=== PATIENT | male | born 1955 | race Caucasian/White ===

== ENCOUNTER → 2018-10-28 | Day surgery (SDC) | payer BC ==
[2018-10-27 15:28] LABS: BASOPHILS % 0.4 % (0.0-1.0); EOSINOPHILS # (AUTO) 0.1 (0.0-0.4); EOSINOPHILS % 1.6 % (0.0-6.0); HEMATOCRIT 39.3 % (38.2-49.6); LYMPHOCYTES # (AUTO) 2.1 (1.0-3.2); LYMPHOCYTES % 38.4 % (18.0-39.1); MEAN CORPUSCULAR HEMOGLOBIN 31.2 pg (28-32); MEAN CORPUSCULAR HGB CONC 33.1 g/dL (31-35); MEAN CORPUSCULAR VOLUME 94.2 fL (81-99); MONOCYTES # (AUTO) 0.4 (0.2-0.8); MONOCYTES % 7.6 % (4.4-11.3); NEUTROPHILS # (AUTO) 2.9 (2.1-6.9); NEUTROPHILS % 51.8 % (38.7-80.0); PLATELET COUNT 118 x10e3/uL (140-360); RED BLOOD COUNT 4.17 x10e6/uL (4.3-5.7); RED CELL DISTRIBUTION WIDTH 12.2 % (11.7-14.4)
[2018-10-27 15:54] LABS: ALANINE AMINOTRANSFERASE 17 IU/L (0-55); ALBUMIN 3.9 g/dL (3.5-5.0); ALBUMIN/GLOBULIN RATIO 1.2 (0.8-2.0); ALKALINE PHOSPHATASE 60 IU/L (40-150); ANION GAP 11.9 mmol/L (8-16); BLOOD UREA NITROGEN 15 mg/dL (7-26); BUN/CREATININE RATIO 14 (6-25); CALCIUM 9.9 mg/dL (8.4-10.2); CARBON DIOXIDE 28 mmol/L (22-29); CHLORIDE 101 mmol/L (98-107); CHOL/HDL RATIO 2.6 (3.9-4.7); CHOLESTEROL 174 MD/DL (0-199); CREATININE, SERUM 1.06 mg/dL (0.72-1.25); EST GLOMERULAR FILTRATION RATE > 60 ML/MIN (60-); GLUCOSE 106 mg/dL (74-118); HDL CHOLESTEROL 68 MG/DL (40-60); LDL CHOLESTEROL 77 MG/DL (60-130); POTASSIUM 3.9 mmol/L (3.5-5.1); SODIUM 137 mmol/L (136-145); TRIGLYCERIDES 143 MG/DL (0-149)
[2018-10-27 15:55] LABS: INR 0.9; PROTHROMBIN TIME 12.6 seconds (11.9-14.5)
[~2018-10-28] VITALS: Ht 188 cm; Wt 84.8 kg
[2018-10-28] VITALS (10 sets, daily range): BP systolic 111–136; BP diastolic 54–82
[~2018-10-28] MED LIST: ALPRAZOLAM 0.5 MG TAB ONE; BENZONATATE100 MG PO; BYSTOLIC10 MG PO; CRESTOR10 MG PO; DIPHENHYDRAMINE HCL 25 MG CAP ONE; FENTANYL CITRATE/PF 100MCG/2 ML INJ ONE; HEPARIN SOD/SOD CHLORIDE 2,000 ML ONE; INSULIN SC; IOPAMIDOL 370 MG/ML 200 ML INFUS..BTL INJ ONE; JARDIANCE PO; LANTUS100 UNITS/ SQ; LIDOCAINE 1% W/EPINEPHRINE 20 ML VIAL ONE; LIDOCAINE HCL 2% LOCAL 20 ML VIAL ONE; LOSARTAN PO; LOSARTAN-HCTZ1 EACH PO; METFORMIN HCL500 M2 PO; MIDAZOLAM HCL 2 MG/2 ML VIAL ONE; OMEPRAZOLE40 MG PO; SODIUM CHLORIDE 0.9% 1000ML 1,000 ML ONE
--- OUTSIDE RECORDS SUMMARY | 2018-10-28 08:58 | XMS REPORT | Clinical Summary ---
Author Author [facility] [facility] Address Unknown Phone Unavailable Care Team Providers Care Medicaid Analyst Name Role Phone Asked, No Pcp PCP Unavailable Allergies Not on File Medications Not on file Active Problems Not on file Encounters Care Team Description Date Type Specialty Galrand Casarez MD Tear of left rotator cuff, unspecified tear extent (Primary Dx) 06/27/2018 Transcribe Physical Therapy Orders Garland Casarez MD Superior glenoid labrum lesion of left shoulder, initial encounter (Primary Dx) 05/22/2018 Transcribe Physical Therapy Orders Garland Casarez MD Superior glenoid labrum lesion of left shoulder, initial encounter (Primary Dx) 03/27/2018 Transcribe Physical Therapy Orders Garland Casarez MD Anterior to posterior tear of superior glenoid labrum of left shoulder (Primary Dx) 02/11/2018 Transcribe Physical Therapy Orders after 10/27/2017 Social History Date Tobacco Use Types Packs/Day Years Used Never Assessed Sex Assigned at Date Recorded Not on file Industry Job Start Date Occupation Not on file Not on file Not on file Travel End Travel History Travel Start No recent travel history available. Last Filed Vital Signs Not on file Plan of Treatment Health Maintenance Due Date Last Done Comments COLON CANCER SCREENING 2006 SHINGLES VACCINES (#1) 2006 INFLUENZA VACCINE 02/12/2019 Results Not on fileafter 10/27/2017 Insurance Payer Benefit Subscriber ID Type Phone Address Plan / Group BCBS BCBS xxxxxxxxxxxx PPO CHOICE PPO/LUIS FERNANDO LUCIANO PPO Advance Directives Patient has advance care planning documents on file. For more information, michael dent contact: Leopoldo Adan [address] [place] [address]
--- OUTSIDE RECORDS SUMMARY | 2018-10-28 08:59 | XMS REPORT | Clinical Summary ---
Author Author [facility] [employer] [facility] Address Unknown Phone Unavailable Care Team Providers Care Planning And Analysis Manager Name Role Phone Douglas Charly Rebolledo PCP Allergies No Known Allergies Medications End Date Status Medication Sig Dispensed Refills Start Date Active nebivolol (BYSTOLIC) 5 MG Take 5 mg by 0 tabletIndications: mouth daily. Cirrhosis (HCC), Chronic hepatitis C without hepatic coma (HCC), Screening for malignant neoplasm Active rosuvastatin (CRESTOR) 10 Take 10 mg by 0 MG tablet mouth daily. Active esomeprazole (NEXIUM) 40 Take 40 mg by 0 MG capsule mouth daily. Active losartan-hydroCHLOROthiaz Take 1 tablet 3 macarena (HYZAAR) 50-12.5 mg by mouth 8 per tabletIndications: daily. Hyperlipidemia, unspecified hyperlipidemia type, Abnormal liver enzymes, Fatty liver, Other cirrhosis of liver (HCC), Screening for malignant neoplasm, History of hepatitis C Active JARDIANCE 10 mg Take 10 mg by 5 tabletIndications: mouth daily. 8 Hyperlipidemia, unspecified hyperlipidemia type, Abnormal liver enzymes, Fatty liver, Other cirrhosis of liver (HCC), Screening for malignant neoplasm, History of hepatitis C Active PEG Use as 1 packet 0 [id number] directed. 8 C (MOVIPREP) 100-7.5-2.691 gram PwPk packet Active ibuprofen (ADVIL,MOTRIN) Take 600 mg 0 600 MG tablet by mouth every 6 (six) hours as needed for Pain. 02/25/2018 Discontinued cetirizine (ZYRTEC) 10 MG Take 10 mg by 0 chewable mouth daily. tabletIndications: Cirrhosis (HCC), Chronic hepatitis C without hepatic coma (HCC), Screening for malignant neoplasm 02/25/2018 Discontinued metFORMIN (GLUCOPHAGE) Take 500 mg 0 500 MG tablet by mouth 2 (two) times daily with breakfast and dinner. Active Problems Problem Noted Date History of hepatitis C 08/26/2017 Chronic hepatitis C without hepatic coma 10/06/2014 History of alcohol use 10/06/2014 Esophageal varices, risk of 10/06/2014 Iron overload 12/21/2013 Last Assessment & Plan: Iron overload noted on studies from 02/2011 (see HPI). We will re-evaluate today. If iron is still elevated, we will check for HFE mutation associated with hemochromatosis. If the patient has hemochromatosis, he will likely require further management with therapeutic phlebotomy. Immunity status testing 12/21/2013 Last Assessment & Plan: All patients with chronic liver disease, regardless of etiology, should be immunized to prevent hepatitis A and hepatitis B if they are not already immune. We will test for immunity to both viruses. Vaccine recommendations will follow. Screening for malignant neoplasm 12/21/2013 Last Assessment & Plan: AFP 17.8 in 02/2011 is concerning for potential neoplasm. There is a strong association between chronic HCV infection and the development of HCC. Fatty liver, DM, chronic EtOH use, and advanced fibrosis are also RFs for the development of HCC. We will evaluate for lesions consistent with HCC on abdominal MRI with contrast and we will also evaluate serum AFP. Diabetes mellitus 12/21/2013 Last Assessment & Plan: Diagnosed in 2012. The patient is on Humalog and Lantus for management. HgA1C was 11.4 in 11/27/13. We will defer to the patient's PCP for management. Hyperlipidemia 12/21/2013 Last Assessment & Plan: Elevated total cholesterol and LDL in 02/2011. Hyperlipidemia is a risk factor for the development of fatty liver. Statins can be safely used in patients with liver disease including cirrhosis. The patient should follow up with his PCP to evaluate a current lipid profile. We will defer to the patient's PCP for management. Atrial fibrillation 12/21/2013 Abnormal liver enzymes 12/21/2013 Last Assessment & Plan: In 11/27/13, liver enzymes were elevated in hepatocellular pattern with ALT > AST, AST 2x ULN and ALT 3x ULN, normal alkaline phosphatase (AST/ALT 68/107, Alk Phos 73). These values are not consistent with those expected in the setting of alcoholic cirrhosis, in which case AST would be greater than twice the value of ALT. Enzyme elevation is likely due to chronic HCV and fatty liver. We will re-evaluate liver enzymes in today's labs. Fatty liver 12/21/2013 Last Assessment & Plan: Gr 3 St 3 with hepatic steatosis on liver biopsy 07/2007. CT chest w/ contrast noted mildly nodular contour of liver with hepatic steatosis, enlarged L hepatic lobe and caudate lobe, 12/04/13. RFs include IDDM, hyperlipidemia. We will evaluate for status of fatty liver and possible cirrhosis with abdominal MRI. Cirrhosis 12/21/2013 Last Assessment & Plan: Cirrhosis diagnosed by labs and imaging. No history or evidence of decompensation. Liver biopsy in 07/[address] chest w/ contrast noted mildly nodular contour of liver with hepatic steatosis, enlarged L hepatic lobe and caudate lobe, 12/04/13. Hepatic function is preserved by labs (T bili 0.7, Alb 4.3 in 11/27/13, Plt 131 in 01/2013). RFs for the development of cirrhosis are chronic HCV infection, fatty liver, and chronic alcohol use. The patient's calculated APRI is 1.73, which raises suspicion for cirrhosis. APRI >1.0 has a sensitivity of 76% and specificity of 72% for predicting cirrhosis. NAFLD fibrosis score is 2.0. NAFLD fibrosis score >0.675 predicts significant fibrosis (F3-F4). Fib-4 Score is 2.86, which predicts moderate fibrosis, F2. We will evaluate MRI for nodular hepatic contour and signs of portal hypertension. The patient was instructed to schedule an EGD with his field marketing associate for surveillance for gastroesophageal varices. Encounters Care Team Description Date Type Specialty Pauline Estrada RN Fatty liver (Primary Dx); Other cirrhosis of liver (HCC) 10/27/2018 Orders Only Hepatology Damián Tejeda MD Fuller, [place], NP Other cirrhosis of liver (HCC) (Primary Dx); Immunity status testing 10/24/2018 Office Visit Hepatology Jimmie Dixon MD 03/06/2018 Anesthesia Gastroenterology Event Damián Tejeda MD UPPER ENDOSCOPY,BIOPSY 03/06/2018 Surgery Gastroenterology Damián Tejeda MD 03/06/2018 Hospital Gastroenterology Encounter Damián Tejeda MD Hollinger, F. Blaine, MD Other cirrhosis of liver (HCC) (Primary Dx) 03/06/2018 Office Visit Hepatology Resource, [place] Preadmit Phone 02/25/2018 Hospital Pre-Admission Testing Encounter Fide Salmon RN Appointment 02/25/2018 Telephone Hepatology Fide Salmon RN Screen for colon cancer (Primary Dx) 02/25/2018 Orders Only Hepatology Rufina Beal Procedure (EGD/Colonoscopy) 02/17/2018 Telephone Hepatology Rufina Beal Appointment (procedure) 01/29/2018 Telephone Hepatology after 10/27/2017 Family History Medical History Relation Name Comments Cancer Father Heart failure Father Hypertension Father Relation Name Status Comments Father Mother Alive Social History Date Tobacco Use Types Packs/Day Years Used Former Smoker Smokeless Tobacco: Never Used Comments: stop smoking 15 years ago Alcohol Use Drinks/Week oz/Week Comments Yes 2-4 Glasses 1.2 - 2.4 of wine Sex Assigned at Date Recorded Not on file Industry Job Start Date Occupation Not on file Not on file Not on file Travel End Travel History Travel Start No recent travel history available. Last Filed Vital Signs Time Taken Vital Sign Reading 10/24/2018 10:27 AM CDT Blood Pressure 135/83 10/24/2018 10:27 AM CDT Pulse 68 10/24/2018 10:27 AM CDT Temperature 37.1 C (98.7 F) 10/24/2018 10:27 AM CDT Respiratory Rate 14 10/24/2018 10:27 AM CDT Oxygen Saturation 97% - Inhaled Oxygen - Concentration 10/24/2018 10:27 AM CDT Weight 86.8 kg (191 lb 4.8 oz) 10/24/2018 10:27 AM CDT Height 188 cm (6' 2") 10/24/2018 10:27 AM CDT Body Mass Index 24.56 Plan of Treatment Not on file Procedures Comments Procedure Name Priority Date/Time Associated Diagnosis HEPATITIS B SURFACE Routine 10/24/2018 Immunity status testing ANTIBODY 11:56 AM CDT CBC W/PLT COUNT & AUTO Routine 10/24/2018 Other cirrhosis of liver DIFFERENTIAL 11:55 AM CDT (HCC) ALPHA FETOPROTEIN (AFP), Routine 10/24/2018 Other cirrhosis of liver TUMOR MARKER 11:55 AM CDT (HCC) CBC W/PLT COUNT & AUTO Routine 10/24/2018 Other cirrhosis of liver DIFFERENTIAL 11:55 AM CDT (HCC) HEPATIC FUNCTION PANEL Routine 10/24/2018 Other cirrhosis of liver 11:55 AM CDT (HCC) BASIC METABOLIC PANEL (7) Routine 10/24/2018 Other cirrhosis of liver 11:55 AM CDT (HCC) REPORT OF PROCEDURE - 06/03/2018 ENDOSCOPY URL 11:53 AM GAS APPLIANCE ADJUSTER REPORT OF PROCEDURE - 06/03/2018 ENDOSCOPY URL 11:53 AM GAS APPLIANCE ADJUSTER REPORT OF PROCEDURE - 03/06/2018 Other cirrhosis of liver ENDOSCOPY URL 12:18 PM CDT (HCC) REPORT OF PROCEDURE - 03/06/2018 Other cirrhosis of liver ENDOSCOPY URL 12:17 PM CDT (HCC) TISSUE EXAM AP Routine 03/06/2018 11:40 AM CDT COLONOSCOPY 03/06/2018 Cirrhosis of liver 11:00 AM CDT without ascites, unspecified hepatic cirrhosis type (HCC) Screening for malignant neoplasm UPPER ENDOSCOPY,BIOPSY 03/06/2018 Cirrhosis of liver 11:00 AM CDT without ascites, unspecified hepatic cirrhosis type (HCC) Screening for malignant neoplasm CBC W/PLT COUNT & AUTO Routine 03/06/2018 Other cirrhosis of liver DIFFERENTIAL 9:36 AM CDT (HCC) ALPHA FETOPROTEIN (AFP), Routine 03/06/2018 Other cirrhosis of liver TUMOR MARKER 9:36 AM CDT (HCC) PROTHROMBIN TIME/INR Routine 03/06/2018 Other cirrhosis of liver 9:36 AM CDT (HCC) CBC W/PLT COUNT & AUTO Routine 03/06/2018 Other cirrhosis of liver DIFFERENTIAL 9:36 AM CDT (HCC) HEPATIC FUNCTION PANEL Routine 03/06/2018 Other cirrhosis of liver 9:36 AM CDT (HCC) BASIC METABOLIC PANEL (7) Routine 03/06/2018 Other cirrhosis of liver 9:36 AM CDT (HCC) after 10/27/2017 Results * Hepatitis B surface antibody (10/24/2018 11:56 AM CDT) Hep B S Ab <8.0 <8.0 mIU/mL [facility] Specimen Blood Performing Organization Address City/State/Zipcode Phone Number [facility] [address] [place] [address] [facility] * CBC with platelet count + automated diff (10/24/2018 11:55 AM CDT) Only the most recent of 2 results within the time period is included. WBC 4.9 3.5 - 10.5 K/L [facility] RBC 4.49 (L) 4.63 - 6.08 M/L [facility] Hemoglobin 14.2 13.7 - 17.5 GM/DL [facility] Hematocrit 42.3 40.1 - 51.0 % [facility] MCV 94.2 (H) 79.0 - 92.2 fL [facility] MCH 31.6 25.7 - 32.2 pg [facility] MCHC 33.6 32.3 - 36.5 GM/DL [facility] RDW 11.9 11.6 - 14.4 % [facility] Platelets 142 (L) 150 - 450 K/CU MM [facility] MPV 10.1 9.4 - 12.4 fL [facility] nRBC 0 0 - 0 /100 WBC [facility] % Neutros 57 % [facility] % Lymphs 33 % [facility] % Monos 8 % [facility] % Eos 2 % [facility] % Baso 1 % [facility] # Neutros 2.81 1.78 - 5.38 K/L [facility] # Lymphs 1.61 1.32 - 3.57 K/L [facility] # Monos 0.39 0.30 - 0.82 K/L [facility] # Eos 0.08 0.04 - 0.54 K/L [facility] # Baso 0.04 0.01 - 0.08 K/L [facility] Immature 0 0 - 1 % [facility] Granulocytes-[facility] Specimen Blood Performing Organization Address City/[facility] Phone Number [address] * Alpha fetoprotein (AFP), tumor marker (10/24/2018 11:55 AM CDT) Only the most recent of 2 results within the time period is included. Alpha-Fetoprotein 3.4 <10.0 ng/mL [facility] Specimen Blood Performing Organization Address City/[facility] Phone Number [place] [id number] * Hepatic function panel (10/24/2018 11:55 AM CDT) Only the most recent of 2 results within the time period is included. Protein, Total 8.0 6.0 - 8.3 gm/dL [facility] Albumin 4.7 3.5 - 5.0 g/dL [facility] Total Bilirubin 0.6 0.2 - 1.2 mg/dL [facility] Bilirubin, Direct 0.3 0.1 - 0.5 mg/dL [facility] Alkaline Phosphatase 59 40 - 150 U/L [facility] AST 25 5 - 34 U/L [facility] ALT 20 6 - 55 U/L [facility] Specimen Blood Performing Organization Address City/[facility] Phone Number [address] [place] [address] [facility] * Basic Metabolic Panel (10/24/2018 11:55 AM CDT) Only the most recent of 2 results within the time period is included. Sodium 140 136 - 145 meq/L [facility] Potassium 4.5 3.5 - 5.1 meq/L [facility] Chloride 104 98 - 107 meq/L [facility] CO2 27 22 - 29 meq/L [facility] BUN 18 7 - 21 mg/dL [facility] Creatinine 1.18 0.57 - 1.25 mg/dL [facility] Glucose 106 (H) 70 - 105 mg/dL [facility] Calcium 10.4 (H) 8.4 - 10.2 mg/dL [facility] EGFR 63Comment: ESTIMATED GFR IS mL/min/1.73 sq m [facility] NOT ACCURATE CREATININE [facility] CLEARANCE IN PREDICTING GLOMERULAR FILTRATION RATE. ESTIMATED GFR IS NOT APPLICABLE FOR DIALYSIS PATIENTS. Specimen Blood Performing Organization Address City/State/Zipcode Phone Number [place] [phone] [place] [address] [facility] * REPORT OF PROCEDURE - ENDOSCOPY URL (06/03/2018 11:53 AM GAS APPLIANCE ADJUSTER) Narrative Performed At * REPORT OF PROCEDURE - ENDOSCOPY URL (06/03/2018 11:53 AM GAS APPLIANCE ADJUSTER) Narrative Performed At * REPORT OF PROCEDURE - ENDOSCOPY URL (03/06/2018 12:18 PM CDT) Narrative Performed At * REPORT OF PROCEDURE - ENDOSCOPY URL (03/06/2018 12:17 PM CDT) Narrative Performed At * Tissue Exam (03/06/2018 11:40 AM CDT) Case Report Surgical Pathology [facility] Case: [id number] Authorizing Provider:Damián Tejeda MD Collected: 03/06/2018 1140 Ordering Location: [facility] Endoscopy Received: 03/06/2018 1411 Services Pathologist: Linda Escalante MD Specimens: A) - Polyp, Duodenum, taken via forcep B) - Antrum, bx via forcep DIAGNOSIS A. DUODENUM, ENDOSCOPIC [facility] POLYPECTOMY: [facility] - CONSISTENT WITH PEPTIC DUODENITIS - NEGATIVE FOR DYSPLASIA OR MALIGNANCY B. STOMACH, ANTRUM, ENDOSCOPIC BIOPSY: - ANTRAL TYPE GASTRIC MUCOSA WITH REACTIVE GASTROPATHY - NO HELICOBACTER PYLORI-LIKE ORGANISMS SEEN ON [facility]TH[facility]-STARRY STAIN - NO INTESTINAL METAPLASIA,DYSPLASIA OR MALIGNANCY NOTED Signing Pathologist Direct Phone Line: [phone] CPT Code(s) 01805 X 2; [id number] [facility] CLINICAL HISTORY Cirrhosis of liver without [facility] ascites, screening for [facility] malignant neoplasm SPECIMEN SOURCE A. Duodenum polyp; B. Antrum [facility] biopsy [facility] GROSS DESCRIPTION Specimen A: Received in [facility] formalin labeled "polyp, [facility] duodenum" are two fragments each measuring 0.3 cm in greatest dimension. Entirely submitted A1. Specimen B: Received in formalin labeled "antrum" are two fragments each measuring 0.2 cm in greatest dimension. Entirely submitted B1. DB/pl MICROSCOPIC DESCRIPTION PERFORMED [facility] SPECIAL STUDIES The following special studies [facility] were performed on this case [facility] and the interpretation is incorporated in the diagnostic report above: [facility] Specimen Tissue - Polyp, Duodenum Performing Organization Address City/State/Zipcode Phone Number [facility] [address] [place] [address] [facility] [place] * Pro-time/INR (03/06/2018 9:36 AM CDT) Protime 13.3 11.7 - 14.7 seconds [facility] INR 1.0 <=5.9 [facility] Specimen Blood Narrative Performed At RECOMMENDED COUMADIN/WARFARIN INR THERAPY RANGES [facility] STANDARD DOSE: 2.0 - 3.0 Includes: PROPHYLAXIS for venous thrombosis, [facility] systemic embolization; TREATMENT for venous thrombosis and/or pulmonary embolus. HIGH RISK: Target INR is 2.5-3.5 for patients with mechanical heart valves. Performing Organization Address City/State/Zipcode Phone Number [facility] [address] [place] [address] [facility] after 10/27/2017 Insurance Payer Benefit Subscriber ID Type Phone Address Plan / Group BLUE CROSS/BLUE SHIELD BCBS PPO xxxxxxxxxxxx PPO [phone] [address] [place] [address] CHOICE
--- OUTSIDE RECORDS SUMMARY | 2018-10-28 08:59 | XMS REPORT ---
Author Author [facility] Address Unknown Phone Unavailable Care Team Providers Care Canvas Worker Apprentice Name Role Phone Deanne TEJEDA Unavailable Unavailable YASMINE LINDSAY Unavailable Unavailable Problems This patient has no known problems. Allergies, Adverse Reactions, Alerts This patient has no known allergies or adverse reactions. Medications This patient has no known medications. Results Test Description Test Time Test Comments Text Results Atomic Results Result Comments HEPATITIS B SURFACE ANTIBODY 2018-10-24 14:32:00 HEPATITIS B SURFACE ANTIBODY (BEAKER) (test lsnn=343) < mIU/mL <8.0 ALPHA FETOPROTEIN (AFP), TUMOR [id number] 14:23:00* Test Item Value Reference Range Comments ALPHA-FETOPROTEIN (BEAKER) (test uooi=8057) 3.4 ng/mL <10.0 HEPATIC FUNCTION [id number] 14:06:00* Test Item Value Reference Range Comments TOTAL PROTEIN (BEAKER) (test tfpp=643) 8.0 gm/dL 6.0-8.3 ALBUMIN (BEAKER) (test ubdc=6005) 4.7 g/dL 3.5-5.0 BILIRUBIN TOTAL (BEAKER) (test gbjt=678) 0.6 mg/dL 0.2-1.2 BILIRUBIN DIRECT (BEAKER) (test hhhb=568) 0.3 mg/dL 0.1-0.5 ALKALINE PHOSPHATASE (BEAKER) (test txih=741) 59 U/L 40-150 AST (SGOT) (BEAKER) (test nuub=436) 25 U/L 5-34 ALT (SGPT) (BEAKER) (test wjbe=929) 20 U/L 6-55 BASIC METABOLIC [id number] 14:06:00* Test Item Value Reference Range Comments SODIUM (BEAKER) (test ueds=029) 140 meq/L 136-145 POTASSIUM (BEAKER) (test qquu=336) 4.5 meq/L 3.5-5.1 CHLORIDE (BEAKER) (test dpyk=318) 104 meq/L 98-107 CO2 (BEAKER) (test sbzp=319) 27 meq/L 22-29 BLOOD UREA NITROGEN (BEAKER) (test zrml=496) 18 mg/dL 7-21 CREATININE (BEAKER) (test jnzp=421) 1.18 mg/dL 0.57-1.25 GLUCOSE RANDOM (BEAKER) (test qdzd=158) 106 mg/dL 70-105 CALCIUM (BEAKER) (test felh=545) 10.4 mg/dL 8.4-10.2 EGFR (BEAKER) (test lakh=6381) 63 mL/min/1.73 sq m ESTIMATED GFR IS NOT ACCURATE CREATININE CLEARANCE IN PREDICTING GLOMERULAR FILTRATION RATE. ESTIMATED GFR IS NOT APPLICABLE FOR DIALYSIS PATIENTS. CBC W/PLT COUNT & AUTO [id number] 13:45:00* Test Item Value Reference Range Comments WHITE BLOOD CELL COUNT (BEAKER) (test vdjb=459) 4.9 K/ L 3.5-10.5 RED BLOOD CELL COUNT (BEAKER) (test vkus=286) 4.49 M/ L 4.63-6.08 HEMOGLOBIN (BEAKER) (test tppb=177) 14.2 GM/DL 13.7-17.5 HEMATOCRIT (BEAKER) (test pyns=687) 42.3 % 40.1-51.0 MEAN CORPUSCULAR VOLUME (BEAKER) (test stgw=855) 94.2 fL 79.0-92.2 MEAN CORPUSCULAR HEMOGLOBIN (BEAKER) (test fzba=678) 31.6 pg 25.7-32.2 MEAN CORPUSCULAR HEMOGLOBIN CONC (BEAKER) (test memv=180) 33.6 GM/DL 32.3-36.5 RED CELL DISTRIBUTION WIDTH (BEAKER) (test stmg=525) 11.9 % 11.6-14.4 PLATELET COUNT (BEAKER) (test bzhs=506) 142 K/CU MM 150-450 MEAN PLATELET VOLUME (BEAKER) (test sraf=802) 10.1 fL 9.4-12.4 NUCLEATED RED BLOOD CELLS (BEAKER) (test skki=947) 0 /100 WBC 0-0 NEUTROPHILS RELATIVE PERCENT (BEAKER) (test bqkp=497) 57 % LYMPHOCYTES RELATIVE PERCENT (BEAKER) (test hojr=546) 33 % MONOCYTES RELATIVE PERCENT (BEAKER) (test cmsb=057) 8 % EOSINOPHILS RELATIVE PERCENT (BEAKER) (test rcgt=342) 2 % BASOPHILS RELATIVE PERCENT (BEAKER) (test tqhw=416) 1 % NEUTROPHILS ABSOLUTE COUNT (BEAKER) (test diwl=717) 2.81 K/ L 1.78-5.38 LYMPHOCYTES ABSOLUTE COUNT (BEAKER) (test ujfp=562) 1.61 K/ L 1.32-3.57 MONOCYTES ABSOLUTE COUNT (BEAKER) (test xpzv=855) 0.39 K/ L 0.30-0.82 EOSINOPHILS ABSOLUTE COUNT (BEAKER) (test huox=128) 0.08 K/ L 0.04-0.54 BASOPHILS ABSOLUTE COUNT (BEAKER) (test ljnp=978) 0.04 K/ L 0.01-0.08 IMMATURE GRANULOCYTES-RELATIVE PERCENT (BEAKER) (test vrsq=1875) 0 % 0-1 TISSUE [id number] 13:51:00Surgical Pathology Report Case: [id number] Authorizing Provider: Damián Tejeda MD Collected: 03/06/2018 1140 Ordering Location: [facility] Endoscopy Received: 03/06/2018 1411 Services Pathologist: Linda Escalante MD Specimens: A) - Polyp, Duodenum, taken via forcep B) - Antrum, bx via forcep A. DUODENUM, ENDOSCOPIC POLYPECTOMY: - CONSISTENT WITH PEPTIC DUODENITIS - NEGATIVE FOR DYSPLASIA OR MALIGNANCYB. STOMACH, ANTRUM, ENDOSCOPIC BIOPSY: - ANTRAL TYPE GASTRIC MUCOSA WITH REACTIVE GASTROPATHY - NO HELICOBACTER PYLORI-LIKE ORGANISMS SEEN ON WARTHIN-STARRY STAIN - NO INTESTINAL METAPLASIA,DYSPLASIA OR MALIGNANCY NOTED Signing Pathologist Direct Phone Line: [phone] signed by Linda Escalante MD on 03/07/2018 at 1:51 [id number] X 2; [id number] of liver without ascites, screening for malignant neoplasmA. Duodenum polyp; B. Antrum biopsySpecimen A: Received in formalin labeled "polyp, duodenum" are two fragments each measuring 0.3 cm in greatest dimension. Entirely submitted A1. Specimen B: Received in formalin labeled "antrum" are two fragments each measuring 0.2 cm in greatest dimension. Entirely submitted B1. DB/plPERFORMEDThe following special studies were performed on this case and the interpretation is incorporated in the diagnostic report above:WARTHIN-STARRYALPHA FETOPROTEIN (AFP), TUMOR MARKER 2018-03-06 11:53:00* Test Item Value Reference Range Comments ALPHA-FETOPROTEIN (BEAKER) (test epze=4706) 4.9 ng/mL <10.0 HEPATIC FUNCTION [id number] 11:37:00* Test Item Value Reference Range Comments TOTAL PROTEIN (BEAKER) (test cxbm=267) 8.2 gm/dL 6.0-8.3 ALBUMIN (BEAKER) (test gzxb=7844) 5.0 g/dL 3.5-5.0 BILIRUBIN TOTAL (BEAKER) (test aozl=812) 0.8 mg/dL 0.2-1.2 BILIRUBIN DIRECT (BEAKER) (test lbmr=406) 0.3 mg/dL 0.1-0.5 ALKALINE PHOSPHATASE (BEAKER) (test zvmy=574) 53 U/L 40-150 AST (SGOT) (BEAKER) (test mngd=271) 43 U/L 5-34 ALT (SGPT) (BEAKER) (test lprm=399) 52 U/L 6-55 BASIC METABOLIC [id number] 11:37:00* Test Item Value Reference Range Comments SODIUM (BEAKER) (test jpuk=674) 139 meq/L 136-145 POTASSIUM (BEAKER) (test kuvo=124) 3.8 meq/L 3.5-5.1 CHLORIDE (BEAKER) (test cjkb=163) 102 meq/L 98-107 CO2 (BEAKER) (test hgzg=386) 28 meq/L 22-29 BLOOD UREA NITROGEN (BEAKER) (test atns=512) 16 mg/dL 7-21 CREATININE (BEAKER) (test skui=851) 1.16 mg/dL 0.57-1.25 GLUCOSE RANDOM (BEAKER) (test ogkf=209) 126 mg/dL 70-105 CALCIUM (BEAKER) (test utka=782) 10.3 mg/dL 8.4-10.2 EGFR (BEAKER) (test lxuv=8138) 64 mL/min/1.73 sq m ESTIMATED GFR IS NOT ACCURATE CREATININE CLEARANCE IN PREDICTING GLOMERULAR FILTRATION RATE. ESTIMATED GFR IS NOT APPLICABLE FOR DIALYSIS PATIENTS. PROTHROMBIN TIME/[id number] 11:19:00* Test Item Value Reference Range Comments PROTIME (BEAKER) (test xucd=824) 13.3 seconds 11.7-14.7 INR (BEAKER) (test isha=573) 1.0 <=5.9 RECOMMENDED COUMADIN/WARFARIN INR THERAPY RANGESSTANDARD DOSE: 2.0 - 3.0 Inclu nicko: PROPHYLAXIS for venous thrombosis, systemic embolization; TREATMENT for taryn ous thrombosis and/or pulmonary embolus.HIGH RISK: Target INR is 2.5-3.5 for pat ients with mechanical heart valves.CBC W/PLT COUNT & AUTO [id number] 11:12:00* Test Item Value Reference Range Comments WHITE BLOOD CELL COUNT (BEAKER) (test oxdx=896) 6.1 K/ L 3.5-10.5 RED BLOOD CELL COUNT (BEAKER) (test dfae=390) 4.69 M/ L 4.63-6.08 HEMOGLOBIN (BEAKER) (test scvl=836) 15.0 GM/DL 13.7-17.5 HEMATOCRIT (BEAKER) (test odpj=781) 43.7 % 40.1-51.0 MEAN CORPUSCULAR VOLUME (BEAKER) (test qgcu=987) 93.2 fL 79.0-92.2 MEAN CORPUSCULAR HEMOGLOBIN (BEAKER) (test ucry=366) 32.0 pg 25.7-32.2 MEAN CORPUSCULAR HEMOGLOBIN CONC (BEAKER) (test itxb=728) 34.3 GM/DL 32.3-36.5 RED CELL DISTRIBUTION WIDTH (BEAKER) (test ttrc=184) 11.8 % 11.6-14.4 PLATELET COUNT (BEAKER) (test xqsg=212) 166 K/CU MM 150-450 MEAN PLATELET VOLUME (BEAKER) (test otox=373) 10.1 fL 9.4-12.4 NUCLEATED RED BLOOD CELLS (BEAKER) (test hapi=120) 0 /100 WBC 0-0 NEUTROPHILS RELATIVE PERCENT (BEAKER) (test vkvs=904) 61 % LYMPHOCYTES RELATIVE PERCENT (BEAKER) (test szfq=447) 29 % MONOCYTES RELATIVE PERCENT (BEAKER) (test eqht=481) 7 % EOSINOPHILS RELATIVE PERCENT (BEAKER) (test bydn=622) 1 % BASOPHILS RELATIVE PERCENT (BEAKER) (test wszb=469) 0 % NEUTROPHILS ABSOLUTE COUNT (BEAKER) (test zxtr=576) 3.73 K/ L 1.78-5.38 LYMPHOCYTES ABSOLUTE COUNT (BEAKER) (test iadg=689) 1.79 K/ L 1.32-3.57 MONOCYTES ABSOLUTE COUNT (BEAKER) (test yxtp=873) 0.44 K/ L 0.30-0.82 EOSINOPHILS ABSOLUTE COUNT (BEAKER) (test ehpt=167) 0.07 K/ L 0.04-0.54 BASOPHILS ABSOLUTE COUNT (BEAKER) (test ubhy=619) 0.02 K/ L 0.01-0.08 IMMATURE GRANULOCYTES-RELATIVE PERCENT (BEAKER) (test znyq=4832) 1 % 0-1 MR, ABDOMEN, [id number] 11:16:00FINAL REPORT TECHNIQUE: MRI of the abdomen WITHOUT and WITH intravenous contrast. INDICATION: 62-year-old man with hepatitis C and cirrhosis. COMPARISON: Abdomen MRI 12/24/2013. FINDINGS: LOWER THORAX: Unremarkable. LIVER: Cirrhotic morphology of the liver. No suspicious hepatic lesions. BILIARY: Prior cholecystectomy. No biliary ductal dilatation or filling defect.SPLEEN: Borderline enlarged, measuring 13.2 cm in the craniocaudal dimension.PANCREAS: No focal masses or ductal dilatation. ADRENALS: No adrenal nodules.KIDNEYS/URETERS: No hydronephrosis or solid mass lesions. PERITONEUM/RETROPERITONEUM: No free f luid.LYMPH NODES: No lymphadenopathy.VESSELS: Portal system and hepatic veins ar e patent. The portal vein is prominent, measuring 1.4 cm in diameter. GI TRACT: No distention or wall thickening. BONES AND SOFT TISSUES: Degenerative changes o f the visualized spine. IMPRESSION:Cirrhosis with evidence of portal hypertensi on. No suspicious liver lesions. Signed: Charmaine Jackort Verified Date/ Time: 10/11/2017 11:16:04 Reading Location: [facility] B1 C013Y CT Body Reading Room -[id number] 08:45:00* Test Item Value Reference Range Comments POC-CREATININE (BEAKER) (test icch=0151) 1.1 mg/dL 0.6-1.3 TESTED AT [facility] [address] [place] [address] POC-EGFR (BEAKER) (test wkxe=8293) 68 mL/min/1.73M2 ALPHA FETOPROTEIN (AFP), TUMOR [id number] 14:20:00* Test Item Value Reference Range Comments ALPHA-FETOPROTEIN (BEAKER) (test jlpe=3947) 4.1 ng/mL <10.0 HEPATIC FUNCTION [id number] 13:56:00* Test Item Value Reference Range Comments TOTAL PROTEIN (BEAKER) (test ubta=492) 8.7 gm/dL 6.0-8.3 ALBUMIN (BEAKER) (test payq=1137) 4.8 g/dL 3.5-5.0 BILIRUBIN TOTAL (BEAKER) (test kgsu=841) 0.6 mg/dL 0.2-1.2 BILIRUBIN DIRECT (BEAKER) (test rdqy=412) 0.2 mg/dL 0.1-0.5 ALKALINE PHOSPHATASE (BEAKER) (test xlag=238) 60 U/L 40-150 AST (SGOT) (BEAKER) (test culu=199) 28 U/L 5-34 ALT (SGPT) (BEAKER) (test nkma=263) 30 U/L 6-55 BASIC METABOLIC [id number] 13:56:00* Test Item Value Reference Range Comments SODIUM (BEAKER) (test lvqb=258) 136 meq/L 136-145 POTASSIUM (BEAKER) (test mmsj=870) 4.5 meq/L 3.5-5.1 CHLORIDE (BEAKER) (test uwlf=640) 100 meq/L 98-107 CO2 (BEAKER) (test rare=661) 24 meq/L 22-29 BLOOD UREA NITROGEN (BEAKER) (test alyp=628) 24 mg/dL 7-21 CREATININE (BEAKER) (test qqlt=177) 1.28 mg/dL 0.57-1.25 GLUCOSE RANDOM (BEAKER) (test zhyz=979) 140 mg/dL 70-105 CALCIUM (BEAKER) (test ifxb=497) 10.1 mg/dL 8.4-10.2 EGFR (BEAKER) (test lbio=4697) 57 mL/min/1.73 sq m ESTIMATED GFR IS NOT ACCURATE CREATININE CLEARANCE IN PREDICTING GLOMERULAR FILTRATION RATE. ESTIMATED GFR IS NOT APPLICABLE FOR DIALYSIS PATIENTS. PROTHROMBIN TIME/[id number] 13:22:00* Test Item Value Reference Range Comments PROTIME (BEAKER) (test rfhn=954) 13.8 seconds 11.7-14.7 INR (BEAKER) (test sohe=727) 1.1 <=5.9 RECOMMENDED COUMADIN/WARFARIN INR THERAPY RANGESSTANDARD DOSE: 2.0 - 3.0 Inclu nicko: PROPHYLAXIS for venous thrombosis, systemic embolization; TREATMENT for taryn ous thrombosis and/or pulmonary embolus.HIGH RISK: Target INR is 2.5-3.5 for pat ients with mechanical heart valves.CBC W/PLT COUNT & AUTO [id number] 13:04:00* Test Item Value Reference Range Comments WHITE BLOOD CELL COUNT (BEAKER) (test qqqp=350) 7.4 K/ L 3.5-10.5 RED BLOOD CELL COUNT (BEAKER) (test hfga=878) 4.56 M/ L 4.63-6.08 HEMOGLOBIN (BEAKER) (test dmbu=612) 14.5 GM/DL 13.7-17.5 HEMATOCRIT (BEAKER) (test gfxc=949) 41.2 % 40.1-51.0 MEAN CORPUSCULAR VOLUME (BEAKER) (test hgwl=080) 90.4 fL 79.0-92.2 MEAN CORPUSCULAR HEMOGLOBIN (BEAKER) (test udme=364) 31.8 pg 25.7-32.2 MEAN CORPUSCULAR HEMOGLOBIN CONC (BEAKER) (test umrw=472) 35.2 GM/DL 32.3-36.5 RED CELL DISTRIBUTION WIDTH (BEAKER) (test csmp=874) 11.4 % 11.6-14.4 PLATELET COUNT (BEAKER) (test aiwh=248) 206 K/CU MM 150-450 MEAN PLATELET VOLUME (BEAKER) (test xrgx=535) 9.3 fL 9.4-12.4 NUCLEATED RED BLOOD CELLS (BEAKER) (test tjcj=992) 0 /100 WBC 0-0 NEUTROPHILS RELATIVE PERCENT (BEAKER) (test fyqc=411) 62 % LYMPHOCYTES RELATIVE PERCENT (BEAKER) (test pfjh=975) 29 % MONOCYTES RELATIVE PERCENT (BEAKER) (test vjyx=046) 7 % EOSINOPHILS RELATIVE PERCENT (BEAKER) (test kflt=797) 1 % BASOPHILS RELATIVE PERCENT (BEAKER) (test gwaf=437) 0 % NEUTROPHILS ABSOLUTE COUNT (BEAKER) (test yqxl=793) 4.54 K/ L 1.78-5.38 LYMPHOCYTES ABSOLUTE COUNT (BEAKER) (test vtmz=369) 2.16 K/ L 1.32-3.57 MONOCYTES ABSOLUTE COUNT (BEAKER) (test guxk=976) 0.49 K/ L 0.30-0.82 EOSINOPHILS ABSOLUTE COUNT (BEAKER) (test lygs=485) 0.10 K/ L 0.04-0.54 BASOPHILS ABSOLUTE COUNT (BEAKER) (test kcej=221) 0.03 K/ L 0.01-0.08 IMMATURE GRANULOCYTES-RELATIVE PERCENT (BEAKER) (test tiva=9222) 1 % 0-1 [id number] 16:46:00* Test Item Value Reference Range Comments FERRITIN (BEAKER) (test idyl=832) 180 ng/mL 5-275 Effective 06/01/2014: Reference Range ChangeNew: Male 5-275 Previous: Male 22-322 Female 5-275 Female 10-291 ALPHA FETOPROTEIN (AFP), TUMOR [id number] 16:46:00* Test Item Value Reference Range Comments ALPHA-FETOPROTEIN (BEAKER) (test yxmz=0796) 4.0 ng/mL <10.0 Effective 06/01/2014: Reference Range ChangeNew: <10.0 Previous: 0.0-8.0 HEPATIC FUNCTION [id number] 16:29:00* Test Item Value Reference Range Comments TOTAL PROTEIN (BEAKER) (test ldhu=378) 7.4 gm/dL 6.0-8.3 ALBUMIN (BEAKER) (test bxpw=2325) 4.4 g/dL 3.5-5.0 BILIRUBIN TOTAL (BEAKER) (test ksrc=684) 0.6 mg/dL 0.2-1.2 BILIRUBIN DIRECT (BEAKER) (test brue=385) 0.3 mg/dL 0.1-0.5 ALKALINE PHOSPHATASE (BEAKER) (test kkus=456) 52 U/L 40-150 AST (SGOT) (BEAKER) (test vkyv=499) 23 U/L 5-34 ALT (SGPT) (BEAKER) (test zfmq=721) 22 U/L 6-55 BASIC METABOLIC [id number] 16:29:00* Test Item Value Reference Range Comments SODIUM (BEAKER) (test eamg=513) 139 meq/L 136-145 POTASSIUM (BEAKER) (test agzb=860) 4.3 meq/L 3.5-5.1 CHLORIDE (BEAKER) (test usce=931) 106 meq/L 98-107 CO2 (BEAKER) (test sfck=394) 27 meq/L 22-29 BLOOD UREA NITROGEN (BEAKER) (test kzya=776) 19 mg/dL 7-21 CREATININE (BEAKER) (test bjcl=308) 1.20 mg/dL 0.57-1.25 GLUCOSE RANDOM (BEAKER) (test fifd=319) 170 mg/dL 70-105 CALCIUM (BEAKER) (test tshi=282) 9.5 mg/dL 8.4-10.2 EGFR (BEAKER) (test mldi=4091) 62 mL/min/1.73 sq m ESTIMATED GFR IS NOT ACCURATE CREATININE CLEARANCE IN PREDICTING GLOMERULAR FILTRATION RATE. ESTIMATED GFR IS NOT APPLICABLE FOR DIALYSIS PATIENTS. IRON, TIBC, % SAT. (WITHOUT FERRITIN)2017-01-03 16:24:00* Test Item Value Reference Range Comments IRON (BEAKER) (test tgpy=598) 99 ug/dL 40-160 TOTAL IRON BINDING CAPACITY (BEAKER) (test lrpm=250) 361 ug/dL 250-450 IRON % SATURATION (2) (BEAKER) (test eooa=1626) 27 % 20-55 CBC W/PLT COUNT & AUTO [id number] 16:04:00* Test Item Value Reference Range Comments WHITE BLOOD CELL COUNT (BEAKER) (test cftc=013) 6.4 K/ L 4.0-10.0 RED BLOOD CELL COUNT (BEAKER) (test hzcv=268) 4.40 M/ L 4.20-5.80 HEMOGLOBIN (BEAKER) (test xzts=360) 13.9 GM/DL 13.0-16.8 HEMATOCRIT (BEAKER) (test xkvb=176) 40.5 % 40.0-50.0 MEAN CORPUSCULAR VOLUME (BEAKER) (test isau=945) 92.0 fL 82.0-98.0 MEAN CORPUSCULAR HEMOGLOBIN (BEAKER) (test giaj=097) 31.6 pg 27.0-33.0 MEAN CORPUSCULAR HEMOGLOBIN CONC (BEAKER) (test gzvj=064) 34.4 GM/DL 32.0-36.0 RED CELL DISTRIBUTION WIDTH (BEAKER) (test roki=712) 11.3 % 10.3-14.2 PLATELET COUNT (BEAKER) (test tnyb=818) 139 K/CU MM 150-430 MEAN PLATELET VOLUME (BEAKER) (test pzjk=896) 6.9 fL 6.5-10.5 NUCLEATED RED BLOOD CELLS (BEAKER) (test vdeb=117) 0 /100 WBC 0-0 NEUTROPHILS RELATIVE PERCENT (BEAKER) (test tnoh=730) 57 % LYMPHOCYTES RELATIVE PERCENT (BEAKER) (test ndsx=271) 35 % MONOCYTES RELATIVE PERCENT (BEAKER) (test qils=549) 6 % EOSINOPHILS RELATIVE PERCENT (BEAKER) (test fjok=576) 1 % BASOPHILS RELATIVE PERCENT (BEAKER) (test vnzw=879) 1 % NEUTROPHILS ABSOLUTE COUNT (BEAKER) (test rqgo=937) 3.63 K/ L 1.80-8.00 LYMPHOCYTES ABSOLUTE COUNT (BEAKER) (test lsjq=037) 2.26 K/ L 1.48-4.50 MONOCYTES ABSOLUTE COUNT (BEAKER) (test hlyz=981) 0.36 K/ L 0.00-1.30 EOSINOPHILS ABSOLUTE COUNT (BEAKER) (test dnnm=934) 0.09 K/ L 0.00-0.50 BASOPHILS ABSOLUTE COUNT (BEAKER) (test bnih=522) 0.05 K/ L 0.00-0.20 0.00PROTHROMBIN TIME/[id number] 15:55:00* Test Item Value Reference Range Comments PROTIME (BEAKER) (test ywux=105) 14.0 seconds 11.7-14.7 INR (BEAKER) (test sjti=092) 1.1 <=5.9 RECOMMENDED COUMADIN/WARFARIN INR THERAPY RANGESSTANDARD DOSE: 2.0 - 3.0 Inclu nicko: PROPHYLAXIS for venous thrombosis, systemic embolization; TREATMENT for taryn ous thrombosis and/or pulmonary embolus.HIGH RISK: Target INR is 2.5-3.5 for pat ients with mechanical heart valves.
--- NOTE | 2018-10-28 10:48 | NUR ---
1048 Received pt to rm #9 Received report from Gwendolyn GLASGOW Identiferx2 [facility] medical Rx Dr Alford. Rt TR band approach 12cc balloon. Titration to start 1130am. Back to baseline orientation. Resp shallow and regular. 100%sat on room air. Abdomen soft and non tender denies necessity to defecate or urinate. Iv left hand infusing well no signs infiltration. Explained POC to family Has copies and aware of importance of followup care. Tolerated po intake.No gross signs of pain,pallor or pressure or dysrhythmia. ds/deni
--- NOTE | 2018-10-28 11:07 | Operative Report ---
DATE OF PROCEDURE: 10/28/2018 SURGEON: Gomez Alford MD CARDIAC THERMAL TECHNICIAN PROCEDURE NOTE INDICATION: 1. Coronary artery disease, abnormal stress test, unstable angina. 2. End of life insertable loop recorder. 3. Ongoing palpitations with history of ventricular tachycardia. PROCEDURES PERFORMED: 1. Left heart catheterization, selective coronary angiography, left ventriculography. 2. Deployment of right wrist TR band. 3. Explant of insertable loop recorder. 4. Insertion of new implantable loop recorder. COMPLICATIONS: None. BLOOD LOSS: 5 mL. RECOMMENDATIONS: Remote monitoring. Aggressive medical therapy for coronary artery disease. DESCRIPTION OF PROCEDURE: Access was obtained in the right radial artery using ultrasound guidance. A 5-Spanish sheath was placed. Diagnostic coronary angiogram revealed a moderate 50% stenosis in the mid and proximal left anterior descending artery, right posterolateral artery, 50% stenosis remaining vessels had less than 20% luminal stenosis. LV ejection fraction 50%. LV end-diastolic pressure of 10. No gradient across the aortic valve on pullback. Left anterior chest was anesthetized using subcutaneous lidocaine. A skin incision was made. The existing ILR was identified and explanted. A new ILR was inserted without complication. Subcutaneous tissue approximated using 4-0 Vicryl. Skin approximated using Dermabond. The patient discharged home same day following application of the right wrist TR band. Gomez Alford MD KSB/MODL /[id number]
--- NOTE | 2018-10-28 11:30 | NUR ---
1130 TR band titration initiated with 12cc in balloon -2cc positive balance 10cc 1145-2cc positive balance 8cc 1200n -2cc positive balance 6cc 1215 -2cc positive balance 4cc 1230 -2cc positive balance 2cc 1245 -2cc no balance Coban dressing and hand splint in place site w/o dressing noted with out s/s hematoma,bleeding pain ,pallor issues. ds/rn
--- NOTE | 2018-10-28 13:15 | NUR ---
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 TR band titration successfully Coban dressing in place with air splint. NO gross signs of pain pallor pressure or dysrhythmia. To private car with local [place] truck driver. assist per wc with [facility] escort.Denies CP or SOB. ds/rn
== END | disposition home or self-care (01) ==
LOC: CATH LAB 08:56
PROVIDERS: ATTEND Internal Medicine Interventional Cardiology
DX: I25.110 Atherosclerotic heart disease of native coronary artery with unstable angina pectoris (principal); R94.39 Abnormal result of other cardiovascular function study; Z45.09 Encounter for adjustment and management of other cardiac device; I10 Essential (primary) hypertension; R00.2 Palpitations; E11.9 Type 2 diabetes mellitus without complications; Z01.812 Encounter for preprocedural laboratory examination; Z82.49 Family history of ischemic heart disease and other diseases of the circulatory system
CPT/HCPCS: 33285; 33286; 36415 ×2; 80053; 80061; 82948; 85025; 85610; 93458; C1764; C1769; C1887; J2001; J2250; J7030; Q9967; 33284

== ENCOUNTER → 2019-03-13 | Day surgery (SDC) | payer BC ==
[~2019-03-13] MED LIST changes: -ALPRAZOLAM 0.5 MG TAB ONE; -DIPHENHYDRAMINE HCL 25 MG CAP ONE; -HEPARIN SOD/SOD CHLORIDE 2,000 ML ONE; +HYOSCYAMINE 0.125 MG TAB ONE; -IOPAMIDOL 370 MG/ML 200 ML INFUS..BTL INJ ONE; -LIDOCAINE 1% W/EPINEPHRINE 20 ML VIAL ONE; -LIDOCAINE HCL 2% LOCAL 20 ML VIAL ONE; +PROPOFOL IV EMULSION 10 MG/ML 50 ML VIAL ONE; -SODIUM CHLORIDE 0.9% 1000ML 1,000 ML ONE
--- OUTSIDE RECORDS SUMMARY | 2019-03-13 07:45 | XMS REPORT | Clinical Summary ---
Author Author [facility] Organization [facility] Address Unknown Phone Unavailable Care Team Providers Care Shopper Name Role Phone Asked, No Pcp PCP Unavailable Allergies Not on File Medications Not on file Active Problems Not on file Encounters Care Team Description Date Type Specialty Garland Casarez MD Tear of left rotator cuff, unspecified tear extent (Primary Dx) 06/27/2018 Transcribe Physical Therapy Orders Garland Casarez MD Superior glenoid labrum lesion of left shoulder, initial encounter (Primary Dx) 05/22/2018 Transcribe Physical Therapy Orders Garland Casarez MD Superior glenoid labrum lesion of left shoulder, initial encounter (Primary Dx) 03/27/2018 Transcribe Physical Therapy Orders after 03/12/2018 Social History Date Tobacco Use Types Packs/Day Years Used Never Assessed Sex Assigned at Date Recorded Not on file Industry Job Start Date Occupation Not on file Not on file Not on file Travel End Travel History Travel Start No recent travel history available. Last Filed Vital Signs Not on file Plan of Treatment Health Maintenance Due Date Last Done Comments COLONOSCOPY SCREENING 2006 SHINGLES VACCINES (#1) 2006 INFLUENZA VACCINE 02/12/2019 Results Not on fileafter 03/12/2018 Insurance Type Payer Benefit Subscriber ID Effective Phone Address Plan / Dates Group PPO BCBS BCBS xxxxxxxxxxxx [id number] CHOICE resent PPO/LUIS FERNANDO LUCIANO PPO Advance Directives For more information, please contact: [phone] Patient [employer] Explanation Type Date Recorded Advance Directives, Living Will and Medical Power of Draughtsman
--- OUTSIDE RECORDS SUMMARY | 2019-03-13 07:45 | XMS REPORT | Clinical Summary ---
Author Author DIL[facility]cted[facility] Hospital[facility]ellowSchedule [facility] Address Unknown Phone Unavailable Care Team Providers Care Layup Worker Name Role Phone Charly Cole PCP Allergies No Known Allergies Medications End [...] Active PEG Use as 1 packet 0 [id number] directed. 8 C (MOVIPREP) 100-7.5-2.691 gram PwPk packet Active ibuprofen (ADVIL,MOTRIN) Take 600 mg 0 600 MG tablet by mouth every 6 (six) hours as needed for Pain. Active Problems Problem Noted Date History of [...] instructed to schedule an EGD with his forest science professor for surveillance for gastroesophageal varices. Encounters Care Team Description Date Type Specialty Chandan Rodriguez NP appt follow up 01/10/2019 Telephone Hepatology Pauline Estrada RN Colonoscopy 01/08/2019 Telephone Hepatology Rufina Beal Procedure (reminder letter) 11/05/2018 Telephone Hepatology Chandan Rodriguez NP repeat lab needed due to clotting 10/30/2018 Telephone HepatPauline Uribe RN Missing lab 10/30/2018 Telephone Hepatology Pauline Estrada RN Fatty liver (Primary Dx); Other cirrhosis of liver (HCC) 10/27/2018 Orders Only Hepatology Damián Tejeda MD Fuller, [place], NP Other cirrhosis of liver (HCC) (Primary Dx); Immunity status testing; Esophageal varices without bleeding, unspecified esophageal varices type (HCC); History of hepatitis C 10/24/2018 Office Visit Hepatology after 03/12/2018 Family History Medical History Relation Name Comments [...] Body Mass Index 24.56 Plan of Treatment Care Team Description Date Type Specialty Damián Tejeda MD [address] [id number] Resource, [facility] F 03/27/2019 Office Visit Hepatology Health Maintenance Due Date Last Done Comments HEMOGLOBIN A1C 12/21/2013 Procedures Comments Procedure Name Priority Date/Time Associated [...] PROCEDURE - 06/03/2018 ENDOSCOPY URL 11:53 AM DEMAND PLANNING MANAGER REPORT OF PROCEDURE - 06/03/2018 ENDOSCOPY URL 11:53 AM DEMAND PLANNING MANAGER after 03/12/2018 Results * Hepatitis B surface antibody (10/24/2018 11:56 AM CDT) Hep B S Ab <8.0 <8.0 mIU/mL [facility] Specimen Blood Performing Organization Address City/State/Zipcode Phone Number [facility] [address] [place] [address] [facility] * CBC with platelet count + automated diff (10/24/2018 11:55 AM CDT) WBC 4.9 3.5 - 10.5 K/L [facility] RBC 4.49 (L) 4.63 - 6.08 M/L [facility] Hemoglobin 14.2 13.7 - 17.5 GM/DL [facility] Hematocrit 42.3 40.1 - 51.0 % [facility] MCV 94.2 (H) 79.0 - 92.2 fL [facility] MCH 31.6 25.7 - 32.2 pg [facility] MCHC 33.6 32.3 - 36.5 GM/DL [facility] RDW 11.9 11.6 - 14.4 % [facility] Platelets 142 (L) 150 - 450 K/CU MM [facility] MPV 10.1 9.4 - 12.4 fL [facility] nRBC 0 0 - 0 /100 WBC [facility] % Neutros 57 % [facility] % Lymphs 33 % [facility] % Monos 8 % [facility] % Eos 2 % [facility] % Baso 1 % [facility] # Neutros 2.81 1.78 - 5.38 K/L [facility] # Lymphs 1.61 1.32 - 3.57 K/L [facility] # Monos 0.39 0.30 - 0.82 K/L [facility] # Eos 0.08 0.04 - 0.54 K/L [facility] # Baso 0.04 0.01 - 0.08 K/L [facility] Immature 0 0 - 1 % [facility] Specimen Blood Performing Organization Address City/State/Zipcode Phone Number [place] [phone] [place] [address] * Alpha fetoprotein (AFP), tumor marker (10/24/2018 11:55 AM CDT) Alpha-Fetoprotein 3.4 <10.0 ng/mL [facility] Specimen Blood Performing Organization Address City/[facility]/Zipcode Phone Number [address] * Hepatic function panel (10/24/2018 11:55 AM CDT) Protein, Total 8.0 6.0 - 8.3 gm/dL [facility] Albumin 4.7 3.5 - 5.0 g/dL [facility] Total Bilirubin 0.6 0.2 - 1.2 mg/dL [facility] Bilirubin, Direct 0.3 0.1 - 0.5 mg/dL [facility] Alkaline Phosphatase 59 40 - 150 U/L [facility] AST 25 5 - 34 U/L [facility] ALT 20 6 - 55 U/L [facility] Specimen Blood Performing Organization Address City/State/Zipcode Phone Number [facility] [address], [place] [phone] [facility] * Basic Metabolic Panel (10/24/2018 11:55 AM CDT) Sodium 140 136 - 145 meq/L [facility] Potassium 4.5 3.5 - 5.1 meq/L [facility] Chloride 104 98 - 107 meq/L [facility] CO2 27 22 - 29 meq/L [facility] BUN 18 7 - 21 mg/dL [facility] Creatinine 1.18 0.57 - 1.25 mg/dL [facility] Glucose 106 (H) 70 - 105 mg/dL [facility] Calcium 10.4 (H) 8.4 - 10.2 mg/dL [facility] EGFR 63Comment: ESTIMATED GFR IS mL/min/1.73 sq m [facility] NOT ACCURATE CREATININE [facility] CLEARANCE IN PREDICTING GLOMERULAR FILTRATION RATE. ESTIMATED GFR IS NOT APPLICABLE FOR DIALYSIS PATIENTS. Specimen Blood Performing Organization Address City/[facility]/Zipcode Phone Number [facility] [address], [place] [phone] [facility] * REPORT OF PROCEDURE - ENDOSCOPY URL (06/03/2018 11:53 AM DEMAND PLANNING MANAGER) Narrative Performed At * REPORT OF PROCEDURE - ENDOSCOPY URL (06/03/2018 11:53 AM DEMAND PLANNING MANAGER) Narrative Performed At after 03/12/2018 Insurance Payer Benefit Subscriber ID Type Phone Address Plan / Group [employer]UE [employer] BCBS PPO xxxxxxxxxxxx PPO [phone] [address] [place] [address] CHOICE
[2019-03-13 08:34] LABS: BASOPHILS % 0.3 % (0.0-1.0); EOSINOPHILS # (AUTO) 0.1 (0.0-0.4); EOSINOPHILS % 1.7 % (0.0-6.0); HEMATOCRIT 42.5 % (38.2-49.6); HEMOGLOBIN 14.8 g/dL (14.0-18.0); LYMPHOCYTES # (AUTO) 1.6 (1.0-3.2); LYMPHOCYTES % 26.3 % (18.0-39.1); MEAN CORPUSCULAR HGB CONC 34.8 g/dL (31-35); MEAN CORPUSCULAR VOLUME 91.8 fL (81-99); MONOCYTES # (AUTO) 0.5 (0.2-0.8); MONOCYTES % 7.7 % (4.4-11.3); NEUTROPHILS # (AUTO) 3.8 (2.1-6.9); NEUTROPHILS % 63.5 % (38.7-80.0); PLATELET COUNT 165 x10e3/uL (140-360); RED BLOOD COUNT 4.63 x10e6/uL (4.3-5.7); RED CELL DISTRIBUTION WIDTH 11.4 % (11.7-14.4)
[2019-03-13 08:51] LABS: ANION GAP 16.7 mmol/L (8-16); CALCIUM 10.1 mg/dL (8.4-10.2); CREATININE, SERUM 1.36 mg/dL (0.72-1.25); POTASSIUM 3.7 mmol/L (3.5-5.1)
[2019-03-13 08:58] LABS: INR 0.93
[2019-03-13 09:06] LABS: PARTIAL THROMBOPLASTIN TIME 26.4 seconds (23.8-35.5)
[2019-03-13 13:17] VITALS: BP 90/61
--- NOTE | 2019-03-13 16:13 | Operative Report ---
DATE OF PROCEDURE: 03/13/2019 SURGEON: Bakari Hill MD PROCEDURES: Esophagogastroduodenoscopy with biopsies and colonoscopy with polypectomy and biopsies. INDICATIONS FOR EGD: Upper abdominal pain. INDICATIONS FOR COLONOSCOPY: Surveillance colonoscopy, history of colon polyps. MEDICATIONS: The patient was done under MAC, please see anesthesiologist's note. PROCEDURE IN DETAIL: With the patient in left lateral decubitus position, flexible fiberoptic Olympus gastroscope was introduced into the esophagus under direct visualization without any difficulty. Grade 1 esophageal varices were noted without active bleeding or stigmata of recent hemorrhage. The scope was then advanced with ease into the stomach. Mucosa overlying the antrum revealed some patchy intense erythema and low-grade to moderate edema and biopsies were obtained and sent to stain for H pylori. In the gastric body, the folds appeared somewhat generous and biopsies were obtained. The pylorus was intubated with ease and the scope was advanced all the way to the second portion of the duodenum. Biopsies were obtained from the second portion and in the duodenal bulb to rule out sprue. A minute nodule was noted in the proximal second portion that was biopsied. The scope was then withdrawn back into the stomach and retroflexed, mucosa overlying the fundus and cardia appeared to be within normal limits. The scope was then straightened out, it was subsequently withdrawn. The patient tolerated the procedure well. IMPRESSION: 1. Grade 1 esophageal varices without active bleeding or stigmata of recent hemorrhage. 2. Gastritis, biopsied. Biopsies sent to stain for Helicobacter pylori. 3. Gastric folds, body, prominent, biopsied. 4. Nodule, proximal second portion, biopsied. 5. Rule out sprue. PLAN: Follow up histology. Increase omeprazole to 40 mg one p.o. a.c. b.i.d. PROCEDURE IN DETAIL: The patient was then turned around after adequate lubrication of the anal canal, a flexible fiberoptic Olympus colonoscope was inserted into the rectum with ease and advanced all the way to the cecum. It was then withdrawn slowly. Mucosa overlying the cecum, ascending colon, transverse colon, and descending colon appeared to be within normal limits. Some patchy mild inflammatory changes were noted in the sigmoid and rectum. Biopsies were obtained. Two polyps were hot biopsied from the sigmoid. One polyp was biopsied per the cold biopsy forceps in the rectum. The scope was then retroflexed into the distal rectum and small internal hemorrhoids were noted, none of which was actively bleeding. The scope was then straightened out, it was subsequently withdrawn. The patient tolerated the procedure well. IMPRESSION: 1. Sigmoid colon polyps x2 hot biopsied. 2. Proctosigmoiditis, mild, patchy, biopsies obtained. 3. Rectal polyp, biopsied. 4. Internal hemorrhoids, none actively bleeding. PLAN: Followup histology. Initiate high-fiber, low-fat diet. Initiate high-fiber supplement. The patient might benefit from a followup colonoscopy in 3 years. Bakari Hill MD [facility] [place] /[id number] cc: Lebron Cole DO
== END | disposition home or self-care (01) ==
LOC: OR 07:42
PROVIDERS: ATTEND Internal Medicine Gastroenterology
DX: K29.70 Gastritis, unspecified, without bleeding (principal); K59.00 Constipation, unspecified; I85.00 Esophageal varices without bleeding; Z86.010 Personal history of colon polyps; I10 Essential (primary) hypertension; I25.10 Atherosclerotic heart disease of native coronary artery without angina pectoris; E11.9 Type 2 diabetes mellitus without complications; Z86.19 Personal history of other infectious and parasitic diseases; Z01.810 Encounter for preprocedural cardiovascular examination; Z01.812 Encounter for preprocedural laboratory examination; K31.89 Other diseases of stomach and duodenum; Z68.26 Body mass index [BMI] 26.0-26.9, adult; K63.5 Polyp of colon; K63.89 Other specified diseases of intestine; K62.1 Rectal polyp; K64.8 Other hemorrhoids; K29.80 Duodenitis without bleeding; K31.9 Disease of stomach and duodenum, unspecified; K52.9 Noninfective gastroenteritis and colitis, unspecified
CPT/HCPCS: 36415; 43239; 45380; 45384; 80048; 82948; 85025; 85610; 85730; 93005; J2250; J2704; J3010; 45378

== ENCOUNTER → 2019-06-08 | Outpatient (CLI) | payer BC ==
[~2019-06-08] MED LIST changes: -FENTANYL CITRATE/PF 100MCG/2 ML INJ ONE; -HYOSCYAMINE 0.125 MG TAB ONE; -MIDAZOLAM HCL 2 MG/2 ML VIAL ONE; -PROPOFOL IV EMULSION 10 MG/ML 50 ML VIAL ONE
--- NOTE | 2019-06-08 09:37 | Diagnostic Imaging Report ---
EXAM: US ABDOMEN COMPLETE DATE: 06/08/2019 8:22 AM INDICATION: Hepatic cirrhosis COMPARISON: None TECHNIQUE: Transverse and longitudinal briceño scale and color doppler sonographic images of the upper abdomen were obtained. FINDINGS: There is no evidence of fluid or masses seen in the area of clinical concern in the right lower quadrant. LIVER 12.3 cm in the right midclavicular line. Coarse echotexture of the liver with mildly nodular surface contour, no masses. SPLEEN 12.6 cm in maximum diameter. Normal echogenicity, no masses. GALLBLADDER Status post cholecystectomy. BILE DUCTS No intra nor extra-hepatic biliary dilation. Common bile duct measures 3 mm PANCREAS: Visualized portions are normal. RIGHT KIDNEY: 10.7 cm Echogenicity: Normal Collecting System: No hydronephrosis Stones: None Cyst/Mass: None LEFT KIDNEY: 12.0 cm Echogenicity: Normal Collecting System: No hydronephrosis Stones: None Cyst/Mass: None VESSELS: Aorta: Visualized portions are within normal size limits Inferior Vena Cava: Visualized portions are normal Main Portal Vein: 0.9 cm, normal size with hepatopetal flow. FREE FLUID: None IMPRESSION: Coarse hepatic echotexture and mildly nodular surface contour compatible with early cirrhosis. Status post cholecystectomy. Signed by: Nicole Hu MD on 06/08/2019 9:33 AM
== END ==
LOC: US 08:13
PROVIDERS: ATTEND Family Medicine
DX: K74.60 Unspecified cirrhosis of liver (principal)
CPT/HCPCS: 76700

== ENCOUNTER → 2020-02-22 | Outpatient (CLI) | payer BC ==
--- NOTE | 2020-02-22 09:25 | Diagnostic Imaging Report ---
EXAM: US ABDOMEN COMPLETE DATE: 02/22/2020 8:56 AM INDICATION: Abdominal pain, epigastric discomfort. COMPARISON: Abdominal ultrasound 06-08-2019. TECHNIQUE: Transverse and longitudinal briceño scale and color doppler sonographic images of the abdomen were obtained. FINDINGS: LIVER 14.6 cm in the right midclavicular line. Coarse echotexture of the liver with mildly nodular surface contour, no masses. SPLEEN 12.5 cm in maximum diameter. Normal echogenicity, no masses. GALLBLADDER Status post cholecystectomy. BILE DUCTS No intra nor extra-hepatic biliary dilation. Common bile duct measures 0.4 cm. PANCREAS: Visualized portions are normal. RIGHT KIDNEY: 11.5 cm Echogenicity: Normal Collecting System: No hydronephrosis Stones: None Cyst/Mass: None LEFT KIDNEY: 12.0 cm Echogenicity: Normal Collecting System: No hydronephrosis Stones: None Cyst/Mass: None VESSELS: Aorta: Visualized portions are within normal size limits Inferior Vena Cava: Visualized portions are normal Main Portal Vein: 0.9 cm, normal size with hepatopetal flow. FREE FLUID: None IMPRESSION: Cirrhotic morphology to the liver with mild splenomegaly. Status post cholecystectomy. Signed by: Dr. Kota Babin MD on 02/22/2020 9:21 AM
== END ==
LOC: US 08:20
PROVIDERS: ATTEND Family Medicine
DX: R10.13 Epigastric pain (principal)
CPT/HCPCS: 76700

== ENCOUNTER → 2020-09-20 | Outpatient (CLI) | payer BC | LOC: US 07:33 | PROVIDERS: ATTEND Family Medicine | DX: K74.69 Other cirrhosis of liver (principal) | CPT/HCPCS: 76700 ==

== ENCOUNTER → 2020-10-04 | Day surgery (SDC) | payer BC ==
[2020-09-30 08:11] LABS: BASOPHILS % 0.6 % (0.0-1.0); EOSINOPHILS # (AUTO) 0.1 (0.0-0.4); EOSINOPHILS % 1.5 % (0.0-6.0); HEMATOCRIT 38.4 % (38.2-49.6); HEMOGLOBIN 13.2 g/dL (14.0-18.0); LYMPHOCYTES # (AUTO) 1.8 (1.0-3.2); LYMPHOCYTES % 33.2 % (18.0-39.1); MEAN CORPUSCULAR HEMOGLOBIN 31.6 pg (28-32); MEAN CORPUSCULAR HGB CONC 34.4 g/dL (31-35); MEAN CORPUSCULAR VOLUME 91.9 fL (81-99); MONOCYTES # (AUTO) 0.3 (0.2-0.8); MONOCYTES % 6.5 % (4.4-11.3); NEUTROPHILS # (AUTO) 3.1 (2.1-6.9); NEUTROPHILS % 57.8 % (38.7-80.0); PLATELET COUNT 152 x10e3/uL (140-360); RED BLOOD COUNT 4.18 x10e6/uL (4.3-5.7); RED CELL DISTRIBUTION WIDTH 11.9 % (11.7-14.4)
[2020-09-30 08:36] LABS: INR 0.88; PARTIAL THROMBOPLASTIN TIME 25.5 seconds (23.8-35.5); PROTHROMBIN TIME 12.4 seconds (11.9-14.5)
[2020-09-30 08:56] LABS: ALBUMIN 4.6 g/dL (3.5-5.0); ALBUMIN/GLOBULIN RATIO 1.2 (0.8-2.0); ANION GAP 15.5 mmol/L (8-16); CALCIUM 9.6 mg/dL (8.4-10.2); CREATININE, SERUM 1.25 mg/dL (0.72-1.25); POTASSIUM 4.5 mmol/L (3.5-5.1)
[~2020-10-04] MED LIST changes: +APPLE CIDER VI300 MG PO; +FISH OIL 1,0001 EAC2 PO; +GLUCAGON FOR INJ 1 MG VIAL ONE; +LIDOCAINE HCL 2% LOCAL INJ 5 ML SDV VIAL INJ ONE; +NIACIN100 MG PO; +PROPOFOL IV EMULSION 10 MG/ML 20 ML VIAL ONE; +VITAMIN C1000 MG PO; +ZINC PO
[2020-10-04 12:27] VITALS: BP 123/69
== END | disposition home or self-care (01) ==
LOC: OR 09:54
PROVIDERS: ATTEND Internal Medicine Gastroenterology
DX: K74.60 Unspecified cirrhosis of liver (principal); I85.10 Secondary esophageal varices without bleeding; K29.70 Gastritis, unspecified, without bleeding; K44.9 Diaphragmatic hernia without obstruction or gangrene; K76.6 Portal hypertension; K21.9 Gastro-esophageal reflux disease without esophagitis; K31.89 Other diseases of stomach and duodenum; Z86.010 Personal history of colon polyps; E11.9 Type 2 diabetes mellitus without complications; I10 Essential (primary) hypertension; I48.91 Unspecified atrial fibrillation; R00.1 Bradycardia, unspecified; Z01.810 Encounter for preprocedural cardiovascular examination; Z01.812 Encounter for preprocedural laboratory examination; Z20.822 Contact with and (suspected) exposure to COVID-19; Z79.84 Long term (current) use of oral hypoglycemic drugs; Z68.26 Body mass index [BMI] 26.0-26.9, adult; Z86.19 Personal history of other infectious and parasitic diseases
CPT/HCPCS: 36415 ×2; 43239; 80053; 82948; 85025; 85610; 85730; 93005; J1610; U0002; J2001

== ENCOUNTER → 2021-10-10 | Outpatient (CLI) | payer BC ==
[~2021-10-10] MED LIST changes: +ATENOLOL50 MG PO; -GLUCAGON FOR INJ 1 MG VIAL ONE; -LIDOCAINE HCL 2% LOCAL INJ 5 ML SDV VIAL INJ ONE; -PROPOFOL IV EMULSION 10 MG/ML 20 ML VIAL ONE
== END ==
LOC: US 09:47
PROVIDERS: ATTEND Family Medicine
DX: Z12.9 Encounter for screening for malignant neoplasm, site unspecified (principal); K74.69 Other cirrhosis of liver
CPT/HCPCS: 76700

== ENCOUNTER → 2021-10-13 | Day surgery (SDC) | payer BC, MEDICARE ==
[2021-10-11 16:09] LABS: BASOPHILS % 0.4 % (0.0-1.0); EOSINOPHILS # (AUTO) 0.1 (0.0-0.4); EOSINOPHILS % 1.7 % (0.0-6.0); HEMATOCRIT 35.7 % (38.2-49.6); HEMOGLOBIN 12.2 g/dL (14.0-18.0); LYMPHOCYTES # (AUTO) 1.8 (1.0-3.2); LYMPHOCYTES % 34.2 % (18.0-39.1); MEAN CORPUSCULAR HEMOGLOBIN 32.1 pg (28-32); MEAN CORPUSCULAR HGB CONC 34.2 g/dL (31-35); MEAN CORPUSCULAR VOLUME 93.9 fL (81-99); MONOCYTES # (AUTO) 0.4 (0.2-0.8); MONOCYTES % 6.7 % (4.4-11.3); NEUTROPHILS % 56.6 % (38.7-80.0); PLATELET COUNT 157 x10e3/uL (140-360); RED CELL DISTRIBUTION WIDTH 11.5 % (11.7-14.4)
[2021-10-11 16:20] LABS: INR 0.89; PROTHROMBIN TIME 12.9 seconds (11.9-14.5)
[2021-10-11 16:21] LABS: PARTIAL THROMBOPLASTIN TIME 25.2 seconds (23.8-35.5)
[2021-10-11 16:32] LABS: ALBUMIN 4.2 g/dL (3.5-5.0); ALBUMIN/GLOBULIN RATIO 1.3 (0.8-2.0); ANION GAP 14.4 mmol/L (8-16); CALCIUM 9.5 mg/dL (8.4-10.2); CREATININE, SERUM 1.3 mg/dL (0.72-1.25); POTASSIUM 4.4 mmol/L (3.5-5.1)
[~2021-10-13] MED LIST changes: +FENTANYL CITRATE/PF 100MCG/2 ML INJ ONE; +LIDOCAINE HCL 2% LOCAL INJ 5 ML SDV VIAL INJ ONE; +MIDAZOLAM HCL 2 MG/2 ML VIAL ONE; +PROPOFOL IV EMULSION 10 MG/ML 20 ML VIAL ONE
[2021-10-13 14:30] VITALS: BP 127/79
== END | disposition home or self-care (01) ==
LOC: OR 10:24
PROVIDERS: ATTEND Internal Medicine Gastroenterology
DX: K74.60 Unspecified cirrhosis of liver (principal); I85.10 Secondary esophageal varices without bleeding; K29.70 Gastritis, unspecified, without bleeding; K29.80 Duodenitis without bleeding; K44.9 Diaphragmatic hernia without obstruction or gangrene; K76.6 Portal hypertension; K21.9 Gastro-esophageal reflux disease without esophagitis; K31.89 Other diseases of stomach and duodenum; Z71.3 Dietary counseling and surveillance; E11.9 Type 2 diabetes mellitus without complications; I10 Essential (primary) hypertension; E78.5 Hyperlipidemia, unspecified; Z01.810 Encounter for preprocedural cardiovascular examination; Z01.812 Encounter for preprocedural laboratory examination; Z79.899 Other long term (current) drug therapy; Z20.822 Contact with and (suspected) exposure to COVID-19; Z68.27 Body mass index [BMI] 27.0-27.9, adult; Z87.891 Personal history of nicotine dependence; Z86.19 Personal history of other infectious and parasitic diseases
CPT/HCPCS: 36415; 43239; 80053; 85025; 85610; 85730; 93005; J2001; J2250; J2704; J3010; U0002